=== PATIENT | female | born 1945 | race Caucasian/White ===

== ENCOUNTER → 2017-05-25 | Outpatient (CLI) | payer BC ==
[~2017-05-25] MED LIST: CALCIUM 600 PLU1 TAB PO; FOSAMAX 10M10 MG/TAB PO; LIPITOR 10MG10 MG PO; PRIL40 PO; RT ADVAIR 228 DISKUS IH; SYNTHROID 0.0.025 MG PO
== END ==
LOC: SUN.DIA 11:29
DX: E11.9 Type 2 diabetes mellitus without complications (principal); E78.5 Hyperlipidemia, unspecified; I10 Essential (primary) hypertension; E66.9 Obesity, unspecified; Z68.30 Body mass index [BMI] 30.0-30.9, adult; Z71.3 Dietary counseling and surveillance; Z87.891 Personal history of nicotine dependence
CPT/HCPCS: G0108

== ENCOUNTER → 2017-05-26 | Outpatient (CLI) | payer BC | LOC: SUN.DIA 08:44 | DX: E11.9 Type 2 diabetes mellitus without complications (principal); E78.5 Hyperlipidemia, unspecified; I10 Essential (primary) hypertension; E66.9 Obesity, unspecified; Z68.30 Body mass index [BMI] 30.0-30.9, adult; Z71.3 Dietary counseling and surveillance; Z87.891 Personal history of nicotine dependence | CPT/HCPCS: G0108 ==

== ENCOUNTER 2017-06-25 13:26 | Emergency (ER) | payer BC ==
[~2017-06-25] VITALS: Ht 149.9 cm; Wt 70.9 kg
[2017-06-25 13:31] VITALS: BP 109/71; PULSE 48; TEMP 97.9
[2017-06-25] MEDS ORDERED: CALCIUM 600 PLU1 TAB PO (15:31)
[2017-06-25] MEDS ORDERED: FOSAMAX 10M10 MG/TAB PO (15:32)
[2017-06-25] MEDS ORDERED: SYNTHROID 0.0.025 MG PO (15:32)
[2017-06-25] MEDS ORDERED: PRIL40 PO (15:34)
[2017-06-25] MEDS ORDERED: LIPITOR 10MG10 MG PO (15:35)
[2017-06-25] MEDS ORDERED: RT ADVAIR 228 DISKUS IH (15:36)
== END 2017-06-25 16:06 | disposition home or self-care (01) ==
LOC: COL.ER 13:26
DX: S09.90XA Unspecified injury of head, initial encounter (principal); W18.39XA Other fall on same level, initial encounter

== ENCOUNTER → 2017-07-08 | Outpatient (CLI) | payer BC | LOC: SUN.DIA | DX: E11.9 Type 2 diabetes mellitus without complications (principal); E78.5 Hyperlipidemia, unspecified; I10 Essential (primary) hypertension; E66.9 Obesity, unspecified; Z71.3 Dietary counseling and surveillance; Z87.891 Personal history of nicotine dependence | CPT/HCPCS: G0109 ==

== ENCOUNTER → 2017-07-14 | Outpatient (CLI) | payer BC | LOC: SUN.DIA 10:42 | DX: E11.9 Type 2 diabetes mellitus without complications (principal); E78.5 Hyperlipidemia, unspecified; I10 Essential (primary) hypertension; E66.9 Obesity, unspecified; Z71.3 Dietary counseling and surveillance; Z87.891 Personal history of nicotine dependence | CPT/HCPCS: G0108 ==

== ENCOUNTER → 2017-07-15 | Outpatient (CLI) | payer BC | LOC: SUN.DIA 10:39 | DX: E11.9 Type 2 diabetes mellitus without complications (principal); E78.5 Hyperlipidemia, unspecified; I10 Essential (primary) hypertension; E66.9 Obesity, unspecified; Z71.3 Dietary counseling and surveillance; Z87.891 Personal history of nicotine dependence | CPT/HCPCS: G0109 ==

== ENCOUNTER → 2017-07-22 | Outpatient (CLI) | payer BC ==
[~2017-07-22] MED LIST changes: +ABREVA10% TOP; +ASPIRIN E.C. 8181 MG PO; +BENADRYL25 M2 PO; +CALCIUM PO; +CLARITIN 1010 MG/TAB PO; +DITROPAN XL 5MG5 M1 PO; +NAPROSYN 2250 MG/TAB PO; +PROBIOTIC FORMU1 CAP PO; +VITAMIN D 400400 IU PO; +VITAMIN PO; +ZESTRIL 5MG5 MG PO; +ZIAC 10/6.25M1 UDTAB PO; +ZYRTEC 10MG10 MG PO
== END ==
LOC: SUN.DIA 18:00
DX: E11.9 Type 2 diabetes mellitus without complications (principal); E78.5 Hyperlipidemia, unspecified; I10 Essential (primary) hypertension; E66.9 Obesity, unspecified; Z71.3 Dietary counseling and surveillance; Z87.891 Personal history of nicotine dependence
CPT/HCPCS: G0109

== ENCOUNTER → 2017-07-22 | Outpatient (CLI) | payer BC ==
[~2017-07-22] VITALS: Ht 152.4 cm; Wt 65.5 kg
[2017-07-22 09:31] VITALS: BP 160/84; PULSE 48
== END ==
LOC: LIGHT 08:54
DX: Z01.89 Encounter for other specified special examinations (principal)

== ENCOUNTER → 2017-08-12 | Outpatient (CLI) | payer BC | LOC: SUN.DIA | DX: E11.9 Type 2 diabetes mellitus without complications (principal); E78.5 Hyperlipidemia, unspecified; I10 Essential (primary) hypertension; E66.9 Obesity, unspecified; Z71.3 Dietary counseling and surveillance; Z87.891 Personal history of nicotine dependence | CPT/HCPCS: G0109 ==

== ENCOUNTER → 2017-09-02 | Outpatient (CLI) | payer BC | LOC: SUN.DIA 09:12 | DX: E11.9 Type 2 diabetes mellitus without complications (principal); E78.5 Hyperlipidemia, unspecified; I10 Essential (primary) hypertension; E66.9 Obesity, unspecified; Z68.29 Body mass index [BMI] 29.0-29.9, adult; Z71.3 Dietary counseling and surveillance; Z87.891 Personal history of nicotine dependence | CPT/HCPCS: G0108 ==

== ENCOUNTER → 2017-09-02 | Outpatient (CLI) | payer BC | LOC: SUN.DIA → LIGHT 07-30 10:46 → SUN.DIA 08-20 13:36 | DX: Z01.89 Encounter for other specified special examinations (principal) ==

== ENCOUNTER → 2017-09-18 | Outpatient (CLI) | payer BC | LOC: COL.RAD 10:02 | DX: K43.2 Incisional hernia without obstruction or gangrene (principal) ==

== ENCOUNTER → 2017-12-01 | Outpatient (CLI) | payer BC | LOC: SUN.DIA 10:49 | DX: E11.9 Type 2 diabetes mellitus without complications (principal); E78.5 Hyperlipidemia, unspecified; I10 Essential (primary) hypertension; E66.9 Obesity, unspecified; Z68.28 Body mass index [BMI] 28.0-28.9, adult; Z71.3 Dietary counseling and surveillance; Z87.891 Personal history of nicotine dependence | CPT/HCPCS: G0108 ==

== ENCOUNTER → 2018-03-30 | Outpatient (CLI) | payer BC | LOC: SUN.DIA 10:01 | DX: E11.9 Type 2 diabetes mellitus without complications (principal); E78.5 Hyperlipidemia, unspecified; I10 Essential (primary) hypertension; E66.9 Obesity, unspecified | CPT/HCPCS: G0108 ==

== ENCOUNTER → 2018-09-02 | Outpatient (CLI) | payer BC | LOC: SUN.DIA 08-31 15:48 | DX: E11.9 Type 2 diabetes mellitus without complications (principal); E78.5 Hyperlipidemia, unspecified; I10 Essential (primary) hypertension; E66.9 Obesity, unspecified | CPT/HCPCS: G0108 ==

== ENCOUNTER → 2018-12-02 | Outpatient (CLI) | payer BC | LOC: SUN.DIA 09:18 | DX: E11.9 Type 2 diabetes mellitus without complications (principal); E78.5 Hyperlipidemia, unspecified; I10 Essential (primary) hypertension; E66.9 Obesity, unspecified | CPT/HCPCS: G0108 ==

== ENCOUNTER → 2019-03-03 | Outpatient (CLI) | payer BC | LOC: DIA.ED 09:25 | DX: E11.9 Type 2 diabetes mellitus without complications (principal); E78.5 Hyperlipidemia, unspecified; I10 Essential (primary) hypertension; E66.9 Obesity, unspecified | CPT/HCPCS: G0108 ==

== ENCOUNTER → 2019-06-02 | Outpatient (CLI) | payer BC | LOC: DIA.ED 08:40 | DX: E11.9 Type 2 diabetes mellitus without complications (principal); E78.5 Hyperlipidemia, unspecified; I10 Essential (primary) hypertension; E66.9 Obesity, unspecified | CPT/HCPCS: G0108 ==

== ENCOUNTER → 2020-05-28 | Outpatient (CLI) | payer BC | LOC: DIA.ED 14:50 | DX: E11.9 Type 2 diabetes mellitus without complications (principal); Z79.84 Long term (current) use of oral hypoglycemic drugs; E66.8 Other obesity; E78.5 Hyperlipidemia, unspecified; I10 Essential (primary) hypertension | CPT/HCPCS: G0108 ==

== ENCOUNTER → 2020-11-29 | Outpatient (CLI) | payer BC | LOC: DIA.ED 11-28 08:38 | DX: E11.9 Type 2 diabetes mellitus without complications (principal); Z79.84 Long term (current) use of oral hypoglycemic drugs; I10 Essential (primary) hypertension; E78.5 Hyperlipidemia, unspecified | CPT/HCPCS: G0108 ==

== ENCOUNTER → 2021-05-22 | Outpatient (CLI) | payer BC | LOC: DIA.ED 08:38 | DX: E11.65 Type 2 diabetes mellitus with hyperglycemia (principal); Z79.84 Long term (current) use of oral hypoglycemic drugs; E78.5 Hyperlipidemia, unspecified; I10 Essential (primary) hypertension | CPT/HCPCS: G0108 ==

== ENCOUNTER → 2021-11-20 | Outpatient (CLI) | payer BC | LOC: DIA.ED 08:52 | DX: E11.65 Type 2 diabetes mellitus with hyperglycemia (principal); E78.5 Hyperlipidemia, unspecified; I10 Essential (primary) hypertension | CPT/HCPCS: G0108 ==